=== PATIENT | female | born 1945 | race Caucasian/White ===

== ENCOUNTER 2023-08-17 09:56 | Emergency (ER) | payer MEDICARE, OTHER, SELFPAY ==
[2023-08-17 10:07] VITALS: BP 137/76
[2023-08-17] MEDS: TYLENOL 650 MG PO (11:42)
[2023-08-17] MEDS: VALTREX 1000 MG PO (11:42)
[2023-08-17 11:43] LABS: Urine Albumin 1+ (Neg - Trace); Urine Bilirubin Negative (Negative); Urine Character Slightly Cloudy (Clear); Urine Color Red; Urine Glucose Negative (Negative); Urine Ketone Negative (Negative); Urine Leukocyte 2+ (Negative); Urine Nitrite Negative (Negative); Urine Occult Blood 4+ (Negative); Urine Urobilinogen Negative (Neg - 1+)
[2023-08-17 11:45] LABS: % Basophils 0.3 % (0-2); % Eosinophils 0.7 % (0-6); % Immature Granulocytes 0.3 % (0-0.5); % Lymphocytes 19.8 % (20.5-51.1); % Monocytes 7.3 % (1.7-9.3); % Neutrophils 71.6 % (42.2-75.2); Absolute Eosinophils 0.1 10^3/uL (0-0.7); Absolute Lymphocytes 1.3 10^3/uL (1.2-3.4); Absolute Monocytes 0.5 10^3/uL (0.1-0.6); Absolute Neutrophils 4.8 10^3/uL (1.4-6.5); Hematocrit 40.2 % (37.0-47.0); Hemoglobin 13.6 g/dL (12.0-16.0); Mean Corp Hgb Conc. 33.8 g/dL (33.0-37.0); Mean Corpuscular Hgb 30.2 pg (27.0-31.0); Mean Corpuscular Volume 89.1 fL (81.0-99.0); Mean Platelet Volume 11.5 fL (7.4-10.4); Nucleated Red Blood Cells % 0 %; Platelet Count 154 10^3/uL (130-400); Red Blood Cell Count 4.51 10^6/uL (4.20-5.40); Red Cell Dist. Width 14.4 % (11.5-14.5); White Blood Cell Count 6.7 10^3/uL (4.8-10.8)
[2023-08-17 11:55] LABS: Urine Bacteria Few (Negative); Urine Red Blood Cell 60-70 /HPF (0-2)
--- NOTE | 2023-08-17 11:56 | ED.GENMED ---
History of Present Illness
General
Chief Complaint: Urinary Symptoms
Source: patient
Exam Limitations: none
Time Seen by Provider: 08/17/23 10:51
Nursing documentation reviewed up to this point in time: agreed with
Travel History
Have you had any contact with someone who has COVID-19?: No
Do you have any symptoms of coronavirus? Fever > 100 degrees, chills, cough, shortness of breath, sore throat, loss of taste or smell, muscle aches, or headache?: No
History of Present Illness
History of Present Illness:
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
has had 3 days of gross hematuria
it is pink tinged urine without clots
she is having a genial herpes outbreak x 1 week
hasn't had one in years. says that she has a loto f vaginal pain and irritation, didn't get rx for valtrext but has appt with her pcp nxt week
she started having some dysuria but thogut it was becasue of the vaginal lesions
she has not had any back pain, despite triage note, she tells me zero pain in abdomen and back
no nausea, vomiting, fever, chills, frequenyc of urination, clots.
pt feels like she is voiding normally
no h/o kidney steones.
Past History
Past History
ED Past Medical History: Other (genital herpes)
ED Past Surgical History: None
Social History
Tobacco: Non-smoker
Alcohol: None
Drug: None
Personal: Single
Living: alone
Review of Systems
Review of Systems
Allergies reviewed?: Yes
All Other Systems: Not applicable
Phy Exam
Physical Exam
Physical Exam:
GENERAL: Alert, comfortable, no distress
Neck: supple
CARDIAC: Regular rate and rhythm .
LUNGS: Clear breath sounds bilaterally, no acute respiratory distress, no wheezes/rales/rhonchi
ABDOMEN: Soft, normal bowel sounds, nondistended, mild RLQ tenderness, no guarding, no rebound, neg johnston's
: external pt has some evolving vesicle lesions that are now open, slight oozing, no significant cellulitis or swelling, moderate tender, to the labia minora/mucus membranes/introitus; no lesions near anus;
back: nontender
NEUROLOGICAL: Alert and oriented, no focal neuro deficits
SKIN: Warm and dry, skin intact.
PSYCH: Normal and appropriate interaction.
Course
Orders/Labs/Results
Orders:
Orders
08/17/23 11:09
UA Reflex to Culture [Urinalysis Reflex To Culture] Urgent
Date Specimen was Collected: 08/17/23
Time Specimen was Collected: 11:02
Urine Microscopic Reflex Cult Urgent
Urine Culture Urgent
DRAGAN Source: U
Specimen Description:
Date Specimen was Collected: 08/17/23
Time Specimen was Collected: 11:02
08/17/23 11:25
Bladder Scan- Treatment ONCE
Ibuprofen [Motrin] 400 mg PO NOW STA
Valacyclovir HCl [Valtrex] 1,000 mg PO NOW STA
08/17/23 11:37
Complete Blood Count/With Diff Urgent
Comprehensive Metabolic Panel Urgent
08/17/23 11:41
Acetaminophen [Tylenol] 650 mg .ROUTE .STK-MED ONE
08/17/23 11:42
Acetaminophen [Tylenol] 650 mg PO NOW STA
Abnormal Lab Results
08/17/23 08/17/23
11:09 11:37
MPV 11.5 H fL
(7.4-10.4)
Lymphocytes % 19.8 L %
(20.5-51.1)
Chloride 108 H mmol/L
(98-107)
BUN 21 H mg/dl
(7-17)
Glucose 106 H mg/dl
(70-99)
Total Protein 6.0 L g/dl
(6.3-8.2)
Albumin 3.4 L g/dl
(3.5-5.0)
Ur Occult Blood Reflex 4+ A
(Negative)
Leukocyte Esterase Rfl 2+ A
(Negative)
Urine RBC 60-70 A /HPF
(0-2)
Urine WBC (Reflex) 11-15 A /HPF
(0-5)
Urine Bacteria (Reflex) Few A
(Negative)
Urine Albumin (Reflex) 1+ A
(Neg - Trace)
08/17/23 11:37
08/17/23 11:37
Vital Signs
Initial and Last Documented VS:
Initial Vital Signs
Temp Pulse Resp BP Pulse Ox
98.0 F 74 16 137/76 98
08/17/23 10:07 08/17/23 10:07 08/17/23 10:07 08/17/23 10:07 08/17/23 10:07
Last Documented Vital Signs
Temp Pulse Resp BP Pulse Ox
98.0 F 74 16 137/76 98
08/17/23 10:07 08/17/23 10:07 08/17/23 10:07 08/17/23 10:07 08/17/23 10:07
MDM/Problems Addressed
Differential Diagnosis Includes:
genital herpes, uti, kidney stone
MDM/Problems Addressed:
78-year-old female with genital herpes outbreak over the last week now with hematuria the last 2 to 3 days. It is pink-tinged but still translucent. There is no clots. She is voiding completely. She is no back pain or belly pain, fevers or
chills, nausea or vomiting. She has no history ofkidney stones
she looks well
her vaginal sores are evolving, the vesicles are mostly open, slighlt weeping, she has some whitish plaques on her labia as well
will give valtrx, dsestpie that pt has had symptoms for a week because of how severe this outbreak is
her urine has blood, leuks, and wbc and bacteria
suggestive of hem cystitis
pt has normal wbc, normal cr
bladder scan normal
do not feel pt needs imaging at this time
treat with abx an df/u uro if continued hematuria
*Critical Care Note
Total Time (30-74mins, 75-104mins- exclusive of procedures): Not Applicable
ED Attending Note
-
Portions of this chart may have been created with voice recognition software.� Occasional wrong word or��sound alike� substitutions may have occurred due to the inherent limitations of voice recognition software.
Discharge Plan
Departure
Patient Disposition: Home (Routine Discharge)
Date of Disposition: 08/17/23
Time of Disposition: 12:34
Patient with high blood pressure during this ER visit?: No
Condition: Fair
Covid-19: Not Applicable
Discharge Problem:
Genital herpes, UTI (urinary tract infection)
Instructions: Urinary Tract Infection, Adult (DC), Blood in the Urine (Hematuria), Adult (DC)
Prescriptions:
New
cefdinir 300 mg capsule
300 mg PO BID Qty: 14 0RF
valacyclovir 500 mg tablet
500 mg PO BID Qty: 14 0RF
No Action
escitalopram oxalate [Lexapro] 10 mg Tablet
10 mg PO DAILY
clorazepate dipotassium 3.75 mg Tablet
3.75 mg PO DAILYPRN PRN (Reason: anixety)
Patient Comments:
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
Referrals:
Trixie Bennett CRNP [Family Provider] - Follow up in 2-3 days
Ricky Restrepo MD [Active] - Follow up in 1 week (urology)
Stand Alone Forms: Return to Work
Activity Restrictions/Additional Instructions:
Your blood in your urine is probably from a bladder infection. We sent a urine culture to see what bacteria grows. In the meantime try cefdinir twice a day for 7 days, drink fluids to help your urine cleared up. Watch for worsening symptoms like
fever, back pain, vomiting, abdominal pain and return immediately for these. Also return if you start having clots of blood in your urine or your urine is becoming thicker or darker. For the vaginal infection you should take Valtrex 500 mg twice a
day for 7 days. You can continue Tylenol or ibuprofen for vaginal pain.
Please follow-up with your medical collections specialist or your family doctor. If you continue to have blood in your urine despite treatment with antibiotic you should see a urologist. You may need a cystoscopy. If you started suddenly having back pain I would
be concerned about a kidney stone so please come in immediately
Interventions
Interventions:
*Risk Screen - Suicide Last Done: 08/17/23 10:59
*General Assessment Last Done: 08/17/23 10:59
*Neglect/Abuse Screening Last Done: 08/17/23 10:59
ED- Fall Risk Assessment Last Done: 08/17/23 10:59
*ED COVID-19 Vaccine History Last Done: 08/17/23 10:07
*Nursing Disposition Last Done: 08/17/23 12:43
ED-Female Genitourinary Assessment Last Done: 08/17/23 10:59
Discharge Date and Time
Discharge Date/Time: 08/17/23 12:43
[2023-08-17 12:10] LABS: ALT (SGPT) 14 U/L (0-35); AST (SGOT) 27 U/L (14-36); Albumin 3.4 g/dl (3.5-5.0); Alkaline Phosphatase 73 U/L (38-126); Blood Urea Nitrogen 21 mg/dl (7-17); Calcium 8.4 mg/dl (8.4-10.2); Carbon Dioxide 25 mmol/L (22-30); Chloride 108 mmol/L (98-107); Glucose 106 mg/dl (70-99); Potassium 3.9 mmol/L (3.5-5.1); Sodium 136 mmol/L (135-145); Total Bilirubin 0.6 mg/dl (0.2-1.3); eGFR > 60.00
== END 2023-08-17 12:43 | disposition home or self-care (01) ==
LOC: EMR 09:56
PROVIDERS: Physician Assistant; EMERGENCY PHYSICIAN Emergency Medicine; FAMILY PHYSICIAN Nurse Practitioner Family
DX: A60.09 Herpesviral infection of other urogenital tract (principal); N39.0 Urinary tract infection, site not specified; R31.9 Hematuria, unspecified; Z88.1 Allergy status to other antibiotic agents; Z88.2 Allergy status to sulfonamides
CPT/HCPCS: 99283; 80053; 81003; 81015; 85025; 87086

== ENCOUNTER → 2023-11-06 13:43 | Outpatient (REF) | payer MEDICARE, OTHER, SELFPAY | LOC: RAD 13:43 | PROVIDERS: ATTENDING PHYSICIAN Internal Medicine; FAMILY PHYSICIAN Nurse Practitioner Family | DX: H47.093 Other disorders of optic nerve, not elsewhere classified, bilateral (principal); H57.02 Anisocoria | CPT/HCPCS: 71046 ==

== ENCOUNTER → 2023-11-27 10:52 | Outpatient (REF) | payer MEDICARE, OTHER, SELFPAY | LOC: MRI 3T 10:52 | PROVIDERS: ATTENDING PHYSICIAN Internal Medicine; FAMILY PHYSICIAN Nurse Practitioner Family | DX: H57.02 Anisocoria (principal); H47.092 Other disorders of optic nerve, not elsewhere classified, left eye | CPT/HCPCS: 70543; 70553; A9575 ==

== ENCOUNTER → 2023-12-19 16:58 | Outpatient (REF) | payer MEDICARE, OTHER, SELFPAY | LOC: WDC 16:58 | PROVIDERS: ATTENDING PHYSICIAN Nurse Practitioner Family | DX: Z12.31 Encounter for screening mammogram for malignant neoplasm of breast (principal) | CPT/HCPCS: 77063; 77067 ==

== ENCOUNTER → 2025-05-25 18:27 | Outpatient (REF) | payer MEDICARE, OTHER, SELFPAY | LOC: WDC 18:27 | PROVIDERS: ATTENDING PHYSICIAN Family Medicine | DX: Z12.39 Encounter for other screening for malignant neoplasm of breast (principal); Z12.31 Encounter for screening mammogram for malignant neoplasm of breast | CPT/HCPCS: 77063; 77067 ==